=== PATIENT | male | born 1955 | race Caucasian/White ===

== ENCOUNTER 2018-01-26 11:21 | Inpatient (IN) | payer OTHER ==
[2018-01-26] MEDS ORDERED: Prochlorperazine TAB* 10 MG PO PRN (12:39)
[2018-01-26] MEDS ORDERED: LORazepam INJ* 2 MG/ML 1 ML VIAL IV PUSH PRN (12:41)
[2018-01-26] MEDS: NS 0.9% 1000 ML* 1,000 ML IV SCH ×2 (12:56→22:00)
[2018-01-26] MEDS: Scopolamine 1.5 mg* PATCH TRANSDERM SCH (13:45)
[2018-01-26] MEDS: Enoxaparin(*) 40 MG/0.4 ML SYR SUBCUT SCH (13:46)
[2018-01-26] MEDS: methylPREDNISolone SOD 40 MG* 1 ML VIAL IV SCH (13:47)
[2018-01-26] MEDS ORDERED: Iohexol 300* (CONTRAST) 10 ML SDV IV ONE ×2 (14:49→18:41)
--- NOTE | 2018-01-26 19:06 | RAD ---
Indication: Colitis. Contrast: Administered 111.1 ml of OMNIPAQUE 300 mg/ml CT of the abdomen and pelvis was performed after IV contrast administration. No oral contrast was administered. Coronal and sagittal reconstructed images were obtained. Lung bases demonstrate no pleural fluid, nodules or masses. Heart is of normal size without evidence of pericardial effusion. Liver is normal in size. No focal lesions or intrahepatic ductal dilatation is noted. Gallbladder demonstrates no calcified gallstones. No pericholecystic fluid or wall thickening is noted. Pancreas demonstrates no mass or pancreatic duct dilatation. The spleen is normal in size. No adrenal lesions are noted. The kidneys demonstrate symmetric nephrograms. Low density lesion in the lower pole of the right kidney is noted containing nodular calcification. This is slightly larger than on prior exam currently measures 14 mm. This likely represents a Bosniak 2F lesion and follow-up exam in 6 months is suggested. Alternatively renal mass CT scan protocol could BE performed. Left kidney is unremarkable. No retroperitoneal lymphadenopathy is noted. Small bowel demonstrates mild to moderate dilatation is nonspecific pattern. Mesenteric lymph nodes are noted. Focal wall thickening is noted in the right mid abdomen and reference image [id number] just to the right of midline adjacent to the superior mesenteric vein. This may be causing a partial small bowel obstruction. The appendix is otherwise unremarkable and normal in caliber. No focal wall thickening of the colon is noted. Small mesenteric lymph nodes are noted. Right-sided inguinal hernia containing fat is noted. IMPRESSION: 14 mm low density lesion in the lower pole of the right kidney with coarse calcification. Follow-up exam in 6 months is suggested. There appears to be some tethering of the small intestine with a kink within the bowel activity #4201 5 for which a small bowel lesion is not excluded. Fluid is noted in the colon without mucosal thickening. Lesion in the right kidney with chunky calcification likely represents a Bosniak 2F lesion. Follow-up exam in 6 months is suggested. Alternatively renal mass protocol CT scan could BE performed.
[2018-01-26] MEDS: OLANzapine TAB* 10 MG PO SCH (22:00)
[2018-01-27] MEDS: NS 0.9% 1000 ML* 1,000 ML IV SCH ×3 (06:09→22:32)
[2018-01-27 06:11] LABS: ABS Basophils 0 10^3/ul (0-0.2); ABS Eosinophils 0 10^3/ul (0-0.6); ABS Monocytes 0.8 10^3/ul (0-0.8); ABS Neutrophils 8.8 10^3/ul (1.5-7.7); ABS Nucleated RBC 0 10^3/ul; Eosinophil % 0.1 % (0-6); Hematocrit 38 % (42-52); Hemoglobin 12.8 g/dl (14.0-18.0); Lymphocyte % 17.4 % (25-47); Mean Corpuscular HGB Conc 34 g/dl (31-36); Mean Corpuscular Hemoglobin 32 pg (27-31); Mean Corpuscular Volume 96 fL (80-94); Mean Platelet Volume 7.2 um3 (7.4-10.4); Nucleated Red Blood Cells % 0; Platelet Count 282 10^3/ul (150-450); Red Cell Distribution Width 13 % (10.5-15); White Blood Count 11.6 10^3/ul (3.5-10.8)
[2018-01-27 06:26] LABS: EGFR Non-African American 106.5 (>60)
[2018-01-27] MEDS: methylPREDNISolone SOD 40 MG* 1 ML VIAL IV SCH (07:56)
[2018-01-27] MEDS: Enoxaparin(*) 40 MG/0.4 ML SYR SUBCUT SCH (14:07)
[2018-01-27] MEDS: OLANzapine TAB* 10 MG PO SCH (22:32)
[2018-01-28] MEDS: NS 0.9% 1000 ML* 1,000 ML IV SCH ×3 (06:48→22:48)
[2018-01-28 06:57] LABS: ABS Basophils 0 10^3/ul (0-0.2); ABS Eosinophils 0 10^3/ul (0-0.6); ABS Lymphocytes 2.2 10^3/ul (1.0-4.8); ABS Monocytes 1.1 10^3/ul (0-0.8); ABS Neutrophils 11.4 10^3/ul (1.5-7.7); ABS Nucleated RBC 0 10^3/ul; Eosinophil % 0.1 % (0-6); Hematocrit 40 % (42-52); Hemoglobin 13.4 g/dl (14.0-18.0); Mean Corpuscular HGB Conc 34 g/dl (31-36); Mean Corpuscular Hemoglobin 33 pg (27-31); Mean Corpuscular Volume 96 fL (80-94); Nucleated Red Blood Cells % 0; Platelet Count 265 10^3/ul (150-450); Red Blood Count 4.11 10^6/ul (4.0-5.4); Red Cell Distribution Width 13 % (10.5-15); White Blood Count 14.7 10^3/ul (3.5-10.8)
[2018-01-28 07:13] LABS: EGFR Non-African American 86.1 (>60)
[2018-01-28] MEDS: methylPREDNISolone SOD 40 MG* 1 ML VIAL IV SCH (09:27)
[2018-01-28] MEDS: Ondansetron INJ* 2 MG/ML VIAL IV PRN (10:04)
--- NOTE | 2018-01-28 12:22 | PN ---
Progress Note - Progress Note Date of Service: 01/28/18 SOAP: Subjective: [Binu reports that he was feeling better yesterday afternoon and ate a large volume for lunch and dinner. He did not have any immediate nausea or vomiting, but developed abdominal cramping and diarrhea overnight. He feels better again this am. He has an appetite again this am as well. No fevers. No hematachezia.] Objective: [ Enoxaparin Sodium (Lovenox(*)) 40 mg SUBCUT Q24H [facility] Last Admin: 01/27/18 14:07 Dose: 40 mg Sodium Chloride (Ns 0.9% 1000 Ml*) 1,000 mls @ 125 mls/hr IV PER RATE [facility] Last Admin: 01/28/18 06:48 Dose: 125 mls/hr Lorazepam (Ativan Inj*) 1 mg IV PUSH Q4H PRN PRN Reason: nausea Methylprednisolone Sodium Succinate (Solu-Medrol 40 Mg) 80 mg IV DAILY [facility] Last Admin: 01/28/18 09:27 Dose: 80 mg Olanzapine (Zyprexa Tab*) 10 mg PO BEDTIME [facility] Last Admin: 01/27/18 22:32 Dose: 10 mg Ondansetron HCl (Zofran Inj*) 4 mg IV Q4H PRN PRN Reason: NAUSEA/VOMITING Last Admin: 01/28/18 10:04 Dose: 4 mg Pharmacy Profile Note (Scopolamine Patch Remove*) 1 note PATCH OFF Q72H [facility] Prochlorperazine (Compazine Tab*) 10 mg PO Q6HR PRN PRN Reason: NAUSEA Scopolamine (Transderm-Scop 1.5 Mg Patch*) 1 patch TRANSDERM Q72H [facility] Last Admin: 01/26/18 13:45 Dose: 1 patch Laboratory Results - last 24 hr 01/27/18 01/28/18 01/28/18 17:49 06:41 06:41 WBC 14.7 H RBC 4.11 Hgb 13.4 L Hct 40 L MCV 96 H MCH 33 H MCHC 34 RDW 13 Plt Count 265 MPV 7.0 L Neut % (Auto) 77.3 Lymph % (Auto) 15.0 L Keith % (Auto) 7.5 H Eos % (Auto) 0.1 Baso % (Auto) 0.1 Absolute Neuts (auto) 11.4 H Absolute Lymphs (auto) 2.2 Absolute Monos (auto) 1.1 H Absolute Eos (auto) 0 Absolute Basos (auto) 0 Absolute Nucleated RBC 0 Nucleated RBC % 0 Sodium 137 L Potassium 3.4 L Chloride 108 Carbon Dioxide 25 Anion Gap 4 BUN 25 H Creatinine 0.89 Est GFR ( Amer) 110.7 Est GFR (Non-Af Amer) 86.1 BUN/Creatinine Ratio 28.1 H Glucose 103 H Calcium 7.1 L Magnesium 2.0 Amylase 34 Lipase 41 Vital Signs: Temp Pulse Resp BP Pulse Ox 97.8 F 55 18 111/61 95 01/28/18 11:36 01/28/18 11:36 01/28/18 11:36 01/28/18 11:36 01/28/18 11:36 Exam: Gen: 62 yo male who appears mildly ill, but in NAD HEENT: MMM CV: RRR Resp: lungs CTA Abd: soft, diffusely but mildly TTP, BS present Ext: No edema Skin: No rash] Assessment: [62 yo male with malignant melanoma currently treated with immunotherapy who failed outpatient management of immune mediated colitis.] Plan: [1. Colitis - improved symptoms yesterday, worse overnight after advancing his diet last night - suspect that his worsening symptoms last night were due to advancing his diet too quickly - cont IV steroids - return diet to clear liquids and advance slowly - consider Remicaid if symptoms do not improve 2. Malignant melanoma] - holding therapy
[2018-01-28] MEDS: Enoxaparin(*) 40 MG/0.4 ML SYR SUBCUT SCH (13:37)
[2018-01-28] MEDS ORDERED: Loperamide CAP* 2 MG PO ONE (21:00)
[2018-01-28] MEDS: OLANzapine TAB* 10 MG PO SCH (22:46)
[2018-01-29 06:26] LABS: ABS Basophils 0 10^3/ul (0-0.2); ABS Eosinophils 0 10^3/ul (0-0.6); ABS Lymphocytes 2.4 10^3/ul (1.0-4.8); ABS Monocytes 1.1 10^3/ul (0-0.8); ABS Neutrophils 10.7 10^3/ul (1.5-7.7); ABS Nucleated RBC 0 10^3/ul; Eosinophil % 0.2 % (0-6); Hematocrit 39 % (42-52); Hemoglobin 12.9 g/dl (14.0-18.0); Lymphocyte % 17.1 % (25-47); Mean Corpuscular HGB Conc 33 g/dl (31-36); Mean Corpuscular Hemoglobin 32 pg (27-31); Mean Corpuscular Volume 96 fL (80-94); Mean Platelet Volume 6.9 um3 (7.4-10.4); Nucleated Red Blood Cells % 0; Platelet Count 235 10^3/ul (150-450); Red Blood Count 4.07 10^6/ul (4.0-5.4); Red Cell Distribution Width 14 % (10.5-15); White Blood Count 14.3 10^3/ul (3.5-10.8)
[2018-01-29] MEDS: NS 0.9% 1000 ML* 1,000 ML IV SCH (07:22)
[2018-01-29] MEDS: methylPREDNISolone SOD 40 MG* 1 ML VIAL IV SCH (09:24)
[2018-01-29] MEDS: Ondansetron INJ* 2 MG/ML VIAL IV PRN (09:30)
[2018-01-29] MEDS ORDERED: Scopolamine PATCH Remove* 1 NOTE MISC PATCH OFF SCH (13:00)
[2018-01-29] MEDS: Scopolamine 1.5 mg* PATCH TRANSDERM SCH (13:35)
[2018-01-29] MEDS: Enoxaparin(*) 40 MG/0.4 ML SYR SUBCUT SCH (13:36)
--- NOTE | 2018-01-29 16:07 | DS ---
CC: Janet Moore NP; Dr. Bates* DISCHARGE SUMMARY: DATE OF ADMISSION: 01/26/18 DATE OF DISCHARGE: 01/29/18 PRIMARY ONCOLOGIST: Dr. Ian Bates. ATTENDING PHYSICIAN: Dr. Bragg* (dictated by FRANCISCO Hong). PRIMARY CARE PROVIDER: Janet Moore NP DISCHARGING PROVIDER: FRANCISCO Hong PRIMARY DISCHARGE DIAGNOSES: 1. 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 2. Metastatic melanoma. DISCHARGE MEDICATIONS: 1. Aspirin 81 mg p.o. daily. 2. Vitamin D 600 units p.o. daily. 3. Doxazosin 1 mg p.o. at bedtime. 4. Finasteride 5 mg p.o. daily. 5. Multivitamin 1 tablet p.o. daily. 6. Prednisone 100 mg p.o. daily for the next 7 days, then to start tapering per Dr. Bates's instructions at the time of followup. 7. Compazine 10 mg p.o. q.6 hours as needed for nausea and vomiting. 8. Scopolamine patch, 1 patch applied transdermally every 72 hours. 9. Viagra 50 mg p.o. daily as needed. 10. Simvastatin 20 mg p.o. daily. Medication changes: 1. Prednisone as described above. 2. Compazine. 3. Scopolamine. HOSPITAL IMAGING: CT abdomen and pelvis with IV contrast only shows potentially some tethering of the small intestine with a kink within the small bowel, but no evidence of small bowel obstruction. There was fluid noted within the colon but without mucosal thickening. HOSPITAL COURSE: This is a 62-year-old gentleman with metastatic melanoma, currently being treated by Dr. Bates with ipilimumab and nivolumab. The patient tolerated his first 2 cycles very well without any significant side effects, but following his third cycle of treatment he developed abdominal pain, nausea, vomiting, and diarrhea. CT scan was suggestive of colitis and the patient was started on oral prednisone. Despite initiating prednisone, he continued to be severely nauseated and with multiple episodes of vomiting. His abdominal pain did improve somewhat. The patient was seen on 2 occasions in the medical oncology clinic and received IV steroids and hydration, but unfortunately his symptoms were not improving and he was subsequently hospitalized for IV interventions. The patient was started on IV Solu-Medrol and IV fluids with IV antiemetics. He initially improved quite quickly and his appetite returned and unfortunately , he advanced his diet too quickly and he redeveloped abdominal cramping and diarrhea. His diet was taken back to clear liquids and advanced more slowly, which he tolerated well. The patient remained afebrile throughout his hospitalization. His nausea was well managed. He had very little diarrhea the 24 hours prior to discharge without abdominal pain but still felt somewhat bloated. DISPOSITION AND FOLLOWUP PLAN: The patient is being discharged to home. He will be discharged on prednisone 100 mg p.o. daily, which he is instructed to continue that dose for the next 6 days, at which point, he will follow up with Dr. Bates on 02/03/18. If he is doing well at that time, he can initiate a taper at 10 to 20 mg per week. His treatment will be on hold at this time until colitis symptoms resolve. FRANCISCO HONG [id number]/[facility] #: [id number] [facility]
[2018-01-29 17:47] VITALS: BP 118/65
== END 2018-01-29 16:30 | disposition home or self-care (01) | DRG 249 ==
LOC: SSU 12:28 → OBSVTOIN 01-28 11:34
PROVIDERS: ADMIT Internal Medicine Hematology & Oncology; ATTEND Internal Medicine Hematology & Oncology
DX: K52.89 Other specified noninfective gastroenteritis and colitis (principal); C77.3 Secondary and unspecified malignant neoplasm of axilla and upper limb lymph nodes; C43.62 Malignant melanoma of left upper limb, including shoulder; E78.5 Hyperlipidemia, unspecified; M47.817 Spondylosis without myelopathy or radiculopathy, lumbosacral region; T50.Z15A Adverse effect of immunoglobulin, initial encounter; Y92.9 Unspecified place or not applicable; Z88.1 Allergy status to other antibiotic agents; Z91.012 Allergy to eggs; Z85.46 Personal history of malignant neoplasm of prostate; Z90.79 Acquired absence of other genital organ(s); Z80.42 Family history of malignant neoplasm of prostate; Z80.7 Family history of other malignant neoplasms of lymphoid, hematopoietic and related tissues; Z79.82 Long term (current) use of aspirin
CPT/HCPCS: 36415; 74177; 80048; 80053; 82150; 83690; 83735; 85025; 99220; 99233; 99239; A9270-GY; G0378; J1642; J1650; J2405; J2920; Q0164; Q9967

== ENCOUNTER 2018-02-03 14:26 | Observation (INO) | payer OTHER ==
[2018-02-03] MEDS ORDERED: Prochlorperazine TAB* 10 MG PO PRN (15:06)
[2018-02-03] MEDS ORDERED: Magnesium Sulfate IV* 3 GM in NS 0.9% 100 ML* 100 ML IVPB ONE (15:45)
[2018-02-03] MEDS ORDERED: Temazepam CAP* 15 MG PO PRN (15:47)
[2018-02-03] MEDS ORDERED: oxyCODONE TAB* 5 MG TAB PO PRN (15:47)
[2018-02-03] MEDS ORDERED: Pantoprazole IV* 40 MG IV SCH (16:00)
[2018-02-03] MEDS ORDERED: Scopolamine 1.5 mg* PATCH TRANSDERM SCH (16:00)
[2018-02-03] MEDS: NS 0.9% w/ 40 Meq KCL 1000 ML* 1,000 ML IV SCH (19:39)
--- NOTE | 2018-02-03 20:13 | CONS ---
GASTROENTEROLOGY CONSULT: DATE: 02/03/18 REFERRING PHYSICIAN: Ian Bates MD. REASON FOR CONSULTATION: Nausea and vomiting. 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 After non-response to Keytruda, he was switched to a combination of ipilimumab and nivolumab. A few days after his third dose on 01/13/18, he began experiencing nausea and vomiting. He secondarily mentioned diarrhea. He may see some blood in the stool periodically. He says nausea occurs predictably every morning for about 3 hours. He relates it to taking 100 mg of prednisone and his other meds. He has been on low-fiber diet. His stools have been variable, sometimes very soft or diarrhea, but the other times just soft form. He has no past history of acid peptic or dyspeptic problems. He states his stomach is "cast iron." He has not been through any upper GI workups. He does have a history of rectal bleeding, which has been attributed to hemorrhoids when he has had 3 prior colonoscopies at age 48 and 2 others. He is now on a 10 -year plan. PAST MEDICAL HISTORY: 1. Obesity. 2. Left inguinal herniorrhaphy. 3. BPH. 4. Hypercholesterolemia. 5. Metastatic melanoma - it was in the webspace between his 4th and 5th web fingers, then on the 5th finger, and then in lymph nodes. No internal organ involvement has been demonstrated he says. SOCIAL HISTORY: He is from [place], moving here 17 years ago. He is . He retired last year. REVIEW OF SYSTEMS: No history of syncope, palpitations, MT, valvular disease, congestive failure, TB, hemoptysis, renal stones, colon polyps, etc. PHYSICAL EXAM: He is a moderately overweight red-haired man, in no overt distress. HEENT exam is unremarkable. He is anicteric. He has no adenopathy. There are no bruits. His lungs are clear and heart sounds are regular. The abdomen is obese, but soft and nontender. There is no organomegaly. Extremities unremarkable apart from an obvious melanoma deposit on the left hand. Rectal deferred. IMPRESSION AND PLAN: This 62-year-old man has been experiencing nausea and vomiting for about 3 weeks. It seemed linked to his secondary regimen for melanoma, which includes nivolumab and ipilimumab. Frequent GI side effects are known from these with colitis most common. Possibility of other underlying pathology is considered and as his colon referable symptoms are mild he will undergo upper endoscopy. [id number]/[facility] #: [id number] [facility]
[2018-02-03] MEDS ORDERED: Doxazosin TAB* 2 MG PO SCH (21:00)
[2018-02-03] MEDS: Heparin VIAL(*) 5000 UNITS/ML VIAL (FIVE THOUSAND) SUBCUT SCH (21:20)
[2018-02-04] MEDS: NS 0.9% w/ 40 Meq KCL 1000 ML* 1,000 ML IV SCH ×2 (01:37→10:06)
[2018-02-04] MEDS: Heparin VIAL(*) 5000 UNITS/ML VIAL (FIVE THOUSAND) SUBCUT SCH ×2 (05:32→16:37)
[2018-02-04 06:14] LABS: EGFR Non-African American 138.3 (>60)
[2018-02-04] MEDS ORDERED: Midazolam* 1 MG/ML 10 ML VIAL (10 MG) ONE (07:45)
[2018-02-04] MEDS ORDERED: fentaNYL* 50 MCG/ML 2 ML VIAL (100 MCG VIAL) ONE (07:45)
[2018-02-04] MEDS ORDERED: predniSONE TAB* 20 MG PO SCH (09:00)
[2018-02-04] MEDS ORDERED: Atorvastatin* 10 MG TAB PO SCH (09:00)
[2018-02-04] MEDS ORDERED: Finasteride TAB* 5 MG PO SCH (09:00)
[2018-02-04 09:03] VITALS: BP 106/61
--- NOTE | 2018-02-04 11:13 | DS ---
- Discharge Summary Admission Date: OBV 02/03/18 Discharge Date: 02/04/18 Discharge Diagnosis: 1. Gastritis: no evidence for ulceration on EGD 2. Hypokalemia: resolved 3. Melanoma: therapy on hold d/t steroids, f/u later this week Discharge Medications: Medication Instructions Recorded Confirmed Type Cholecalciferol TAB* [Vitamin D 600 unit PO DAILY 01/26/18 02/03/18 History TAB*] Doxazosin TAB* [Cardura TAB*] 1 mg PO BEDTIME 01/26/18 02/03/18 History Finasteride TAB* [Proscar TAB*] 5 mg PO DAILY 01/26/18 02/03/18 History Multivitamins/Minerals TAB* 1 tab PO DAILY 01/26/18 02/03/18 History [Theragran/minerals TAB*] Sildenafil (NF) [Viagra (NF)] 50 mg PO DAILY PRN 01/26/18 02/03/18 History Simvastatin 20 mg PO DAILY 01/26/18 02/03/18 History Prochlorperazine TAB* [Compazine 10 mg PO Q6HR PRN #40 tab 01/29/18 02/03/18 Rx Tab*] Scopolamine 1.5 mg* PATCH* 1 patch TRANSDERM Q72H #10 patch 01/29/18 02/03/18 Rx [Transderm-Scop 1.5 mg Patch*] Pantoprazole TAB (NF) [Protonix 40 mg PO DAILY #30 tab 02/04/18 Rx TAB (NF)] predniSONE TAB* [Deltasone TAB*] 60 mg PO DAILY tab 02/04/18 Rx Hospital Course: Please see admission note for full H&P, however briefly Mr. Nicole is well known to our service d/t his unfortunate diagnosis of metastatic melanoma. He was most recently treated with combination immunotherapy and subsequently developed a colitis requiring oral steroids. Since starting the steroids he has developed recurrent uncontrolled nausea on exam with concern for ulceration or other underlying pathology. He was admitted for observation in order to accomodate an urgent EGD with biopsy. This was performed this AM without obvious complications. The full procedure report is not currently available, however verbal report per nursing did not show evidence for diffuse ulcerations or obvious metastatic disease. Biopsies were obtained. Mr. Nicole has recovered post procedure and feels reasonably well. He is very agreeable to discharge home with cont.'d PO management and will f/u with Dr. Bates as an outpatient on Tuesday 02/06 with repeat labs to evaluate potassium level (resolved with IV replacement and d/t nausea will hold off on PO replacement for next 2 days). Plan of care was reviewed at length and all questions answered. >40 min spent with >50% face to face counseling
--- NOTE | 2018-02-27 03:31 | PRO ---
DATE: 02/04/18 - ROOM #443 REFERRING PHYSICIAN: Ian Bates * PROCEDURE: Upper gastrointestinal endoscopy. INDICATION: Nausea and vomiting in a man being treated for metastatic melanoma with Nivolumab and Ipilimumab. He has no longstanding history of acid peptic disease and says he has a on his stomach. He has failed tumor response from Keytruda and his third dose of the current regime was on 01/13/18. Following that he has had nausea and vomiting. The nausea occurred mostly in the morning, lasting 3 hours approximately and he wonders if 100 mg of prednisone is causing it. ENDOSCOPIST: Dr. Hunter. MEDICATIONS: Midazolam 5.5, fentanyl 100. FINDINGS: He is a large-frame, substantially overweight middle-aged man, in no distress. EGD: Larynx - symmetric, limited views. Esophagus - easily entered. Mucosa is normal in upper, mid, and lower esophagus with the EG junction snug at 42 cm. Stomach - generally normal mucosa in the cardia, fundus, body, and antrum. The rugal pattern is normal. There are no erosions except some minimal patchy erythema in the antrum that appears nonspecific. Duodenum - the pylorus is normal. The bulb has small erosions and is granular. The granular change consistent with a chronic inflammatory response. It is much more marked in the second and third portion of the duodenum. Biopsies were taken from distal duodenum and two sites in the stomach. IMPRESSION: 1. Normal esophagus and stomach. 2. Duodenopathy - nonspecific with biopsies pending to rule out Giardia or granulomas Addendum: nonspecific chronic inflammation [id number]/[facility] #: [id number] [facility]
== END 2018-02-04 17:15 | disposition home or self-care (01) ==
LOC: MEDTELE 15:14
PROVIDERS: ADMIT Internal Medicine Hematology & Oncology; ATTEND Internal Medicine Hematology & Oncology
PROC: 0DB98ZX Excision of Duodenum, Via Natural or Artificial Opening Endoscopic, Diagnostic (ICD-10-PCS; principal; 2018-02-04)
PROC: 0DB68ZX Excision of Stomach, Via Natural or Artificial Opening Endoscopic, Diagnostic (ICD-10-PCS; 2018-02-04)
DX: K29.70 Gastritis, unspecified, without bleeding (principal); E87.6 Hypokalemia; C43.9 Malignant melanoma of skin, unspecified; C77.9 Secondary and unspecified malignant neoplasm of lymph node, unspecified; Z79.899 Other long term (current) drug therapy; Z88.1 Allergy status to other antibiotic agents; N40.0 Benign prostatic hyperplasia without lower urinary tract symptoms; E66.9 Obesity, unspecified; E78.00 Pure hypercholesterolemia, unspecified
CPT/HCPCS: 36415; 80053; 82270; 82784; 83516; 83735; 86256; 87077; 88305; 88341; 88342; 96365; 96372; 96375; 99156; 99157; 99217; 99220; A9270-GY; G0378; J1642; J1644; J2250; J3010; J3475; J7512

== ENCOUNTER 2018-02-23 10:08 | Inpatient (IN) | payer OTHER ==
[2018-02-23] MEDS ORDERED: Acetaminophen TAB* 325 MG PO PRN (10:34)
[2018-02-23] MEDS ORDERED: PROCHLORPERAZINE INJ 5 MG/ML 2 ML VIAL IV PRN (10:39)
[2018-02-23] MEDS ORDERED: Ondansetron ODT TAB* 4 MG SL PRN (10:39)
[2018-02-23] MEDS ORDERED: Morphine INJ* 10 MG/ML 1 ML CARPUJECT IV PRN (10:40)
[2018-02-23] MEDS ORDERED: Scopolamine 1.5 mg* PATCH TRANSDERM SCH (11:00)
[2018-02-23] MEDS ORDERED: inFLIXimab-DYYB (Inflectra) 100 MG/10 ML VIAL IVPB ONE (12:00)
[2018-02-23] MEDS ORDERED: NS 0.9% IVPB ONE (14:00)
[2018-02-23] MEDS ORDERED: INFLIXIMAB DYYB IVPB ONE (14:00)
[2018-02-23] MEDS: Enoxaparin(*) 40 MG/0.4 ML SYR SUBCUT SCH (14:44)
[2018-02-23] MEDS ORDERED: Iohexol 300* (CONTRAST) 10 ML SDV IV ONE (16:56)
[2018-02-23] MEDS ORDERED: Doxazosin TAB* 2 MG PO SCH (21:00)
[2018-02-23] MEDS: NS 0.9% 1000 ML* 1,000 ML IV SCH (21:15)
--- NOTE | 2018-02-23 21:30 | RAD ---
INDICATION: History of metastatic melanoma. Nausea, vomiting, colitis. COMPARISON: January 19, 2018 CT. July 11, 2017 PET/CT. TECHNIQUE: Multidetector CT images were obtained from the lung apices to the ischial tuberosities with 111 mL Omnipaque 300 IV contrast. No oral contrast administered. Multiplanar reformation. CHEST REPORT: Approximate 6 RIGHT and 6 LEFT subcentimeter pulmonary nodules with assistance representative dominant 0.4 cm nodule at the posterior basal segment of the RIGHT lower lobe reference image 39 and 0.6 cm nodule at the posterior basal segment of the LEFT lower lobe reference image 40 new compared with the January 19, 2018 exam suspicious for metastatic disease given the clinical context. Negative for pleural effusions. LEFT axillary lymphadenopathy with dominant 3.1 x 3.8 cm node increased from 2.6 x 2.8 cm previously. Negative for mediastinal or hilar lymphadenopathy. Negative for cardiomegaly or pericardial effusion. Tip of RIGHT chest port at level of RIGHT atrium. Negative for suspicious thoracic osseous lesions. CHEST IMPRESSION: 1. Multiple new subcentimeter bilateral pulmonary nodules concerning for metastatic disease given the clinical context. 2. Enlargement of LEFT axillary lymphadenopathy. ABDOMEN PELVIS REPORT: Subtle new arterial phase enhancing nodules at the dome of the LEFT hepatic lobe most conspicuous on the chest exam reference images 46-50 with the subsequent portal venous phase series demonstrating small hypodense nodules. Negative for CT abnormality of the gallbladder or pancreas. Multiple hypodense lesions of the spleen measuring up to 1.3 cm larger than seen in the liver new compared with the prior exam. Negative for CT abnormality of the upper GI, small bowel, appendix, colon. Negative for ascites or free air. Fat-containing probable direct RIGHT inguinal hernia without inflammatory change. Normal adrenal glands. Unchanged small cystic lesion with marginal calcification at the anterior midpole of the RIGHT kidney. Symmetric nephrograms and pyelograms. Unremarkable ureters and urinary bladder. Negative for lymphadenopathy. Normal diameter abdominal aorta and iliac arteries. Physiologic distention of the IVC. Multiple small lytic lesions of the lower thoracic and lumbar sacral spine new compared with the January 19, 2018 exam concerning for metastasis. Upper Cutter 1.2 cm maximum dimension lesion at the posterior superior endplate of the L5 vertebral body reference sagittal reformatted image 67. No pathologic fractures evident. ABDOMEN PELVIS IMPRESSION: 1. New hepatic and splenic lesions highly suspicious for metastatic disease. 2. New multiple small lytic lesions at the lower thoracic and lumbar sacral spine highly suspicious for metastatic lesions.
[2018-02-24] MEDS: NS 0.9% 1000 ML* 1,000 ML IV SCH ×2 (05:16→13:30)
[2018-02-24 05:34] LABS: Hematocrit 37 % (42-52); Hemoglobin 12.5 g/dl (14.0-18.0); Mean Corpuscular HGB Conc 34 g/dl (31-36); Mean Corpuscular Hemoglobin 33 pg (27-31); Mean Corpuscular Volume 96 fL (80-94); Mean Platelet Volume 6.8 um3 (7.4-10.4); Platelet Count 145 10^3/ul (150-450); Red Blood Count 3.82 10^6/ul (4.0-5.4); Red Cell Distribution Width 14 % (10.5-15); White Blood Count 8.2 10^3/ul (3.5-10.8)
[2018-02-24 05:50] LABS: EGFR Non-African American 104.8 (>60)
[2018-02-24 06:05] LABS: Monocytes % 5 % (0-7)
[2018-02-24] MEDS ORDERED: Aspirin EC TAB* 81 MG TAB.EC PO SCH (09:00)
[2018-02-24] MEDS: Enoxaparin(*) 40 MG/0.4 ML SYR SUBCUT SCH (13:31)
[2018-02-24 14:23] VITALS: BP 112/58
--- NOTE | 2018-02-25 09:16 | DS ---
CC: Janet Moore NP * DISCHARGE SUMMARY: DATE OF ADMISSION: 02/23/18 DATE OF DISCHARGE: 02/24/18 PRIMARY CARE PROVIDER: Janet Moore NP. PRIMARY ONCOLOGIST AND ATTENDING PHYSICIAN: Dr. Ian Bates.* (DICTATED BY FRANCISCO HONG) DISCHARGING PROVIDER: FRANCISCO Hong. PRIMARY DISCHARGE DIAGNOSES: 1. Immune-mediated duodenitis and colitis with intractable nausea, vomiting, and diarrhea failing oral steroid therapy requiring infliximab. 2. Metastatic melanoma with therapy currently on hold for treatment of his colitis. DISCHARGE MEDICATIONS: 1. Aspirin 81 mg p.o. daily. 2. Vitamin D 600 units p.o. daily. 3. Diclofenac 25 mg p.o. daily. 4. Doxazosin 1 mg p.o. at bedtime. 5. Finasteride 5 mg p.o. daily. 6. Multivitamin one tablet p.o. daily. 7. Compazine 10 mg p.o. q.6 hours as needed for nausea and vomiting. 8. Scopolamine patch 1.5 mg patch applied transdermally every 72 hours as needed for nausea. 9. Viagra 50 mg p.o. daily as needed for erectile dysfunction. 10. Simvastatin 20 mg p.o. daily. HOSPITAL IMAGING: CT chest, abdomen and pelvis shows no acute intra-abdominal pathology, but unfortunately demonstrates significant disease progression. There is multiple new subcentimeter bilateral pulmonary nodules concerning for metastatic disease as well as enlargement of left axillary lymphadenopathy. There is new hepatic and splenic lesions suspicious for metastatic disease and new multiple small lytic lesions at the lower thoracic and lumbar sacral spine suspicious for metastatic lesions. HOSPITAL COURSE: This is a 62-year-old gentleman with metastatic melanoma treated with immunotherapy and after 3 cycles developed severe abdominal pain and diarrhea. He has been treated for colitis and required prior hospitalization for intractable symptoms. He has been on corticosteroids for greater than one month. Patient had been tapering his prednisone, reached the dose of 50 mg daily. Shortly before stepping down, developed some increased nausea, abdominal pain and decreased appetite and after decreasing to 50 mg daily developed severe diarrhea, nausea and vomiting to the point that he was unable to tolerate anything by mouth for approximately 48 hours prior to hospitalization. Evaluation in medical oncology office revealed he was afebrile. Labs demonstrated some mild acute renal insufficiency consistent with hypovolemia and otherwise unremarkable. Due to patient's intractable nausea, vomiting, diarrhea, and inability to tolerate anything orally, he was subsequently admitted to the hospital for symptom management. Patient did fail corticosteroid therapy and thus was administered infliximab at a dose of 5 mg/ kg. Patient reported improvement in symptoms shortly after receiving his dose of infliximab. On the day of discharge, he denied any abdominal pain, nausea, vomiting, or diarrhea. He was able to tolerate a soft diet without symptoms. If patient symptoms recur, can repeat infliximab in 2 weeks. DISPOSITION AND FOLLOWUP PLAN: Patient is being discharged to home. Further corticosteroids have been discontinued. Unfortunately, CT scan shows progression of disease. Patient will follow up with Dr. Bates next week regarding further treatment planning. FRANCISCO HONG [id number]/[facility] #: [id number] [facility]
[2018-02-26] MEDS ORDERED: Scopolamine PATCH Remove* 1 NOTE MISC PATCH OFF SCH (10:59)
== END 2018-02-24 17:00 | disposition home or self-care (01) | DRG 241 ==
LOC: MED 12:55 → OBSVTOIN 12:55
PROVIDERS: ADMIT Internal Medicine Hematology & Oncology; ATTEND Internal Medicine Hematology & Oncology
DX: K29.80 Duodenitis without bleeding (principal); C78.7 Secondary malignant neoplasm of liver and intrahepatic bile duct; C78.02 Secondary malignant neoplasm of left lung; C78.01 Secondary malignant neoplasm of right lung; C79.51 Secondary malignant neoplasm of bone; T50.Z15A Adverse effect of immunoglobulin, initial encounter; Y92.009 Unspecified place in unspecified non-institutional (private) residence as the place of occurrence of the external cause; K52.9 Noninfective gastroenteritis and colitis, unspecified; C43.9 Malignant melanoma of skin, unspecified; E78.5 Hyperlipidemia, unspecified; M47.897 Other spondylosis, lumbosacral region; Z88.1 Allergy status to other antibiotic agents; Z91.012 Allergy to eggs; Z79.82 Long term (current) use of aspirin; Z79.52 Long term (current) use of systemic steroids; Z79.899 Other long term (current) drug therapy; Z85.46 Personal history of malignant neoplasm of prostate; Z80.42 Family history of malignant neoplasm of prostate; Z80.7 Family history of other malignant neoplasms of lymphoid, hematopoietic and related tissues
CPT/HCPCS: 36415; 36591; 71260; 74177; 80053; 83735; 85025; 96361; 96374; 96375; 99213; 99217; 99222; A9270-GY; G0463; J1100; J1642; J1650; J2405; Q5103; Q9967

== ENCOUNTER 2018-08-30 16:47 | Inpatient (IN) | payer BC ==
[2018-08-30] MEDS ORDERED: NS 0.9% 1000 ML* 1,000 ML IV ONE (17:17)
--- NOTE | 2018-08-30 17:29 | ED ---
Complex/Multi-Sys Presentation - HPI Summary HPI Summary: This patient is a 62 year old M brought in by EMS to [facility] accompanied by his with a chief complaint of increasing weakness for the last 10 days. 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 He is currently receiving chemo and radiation. The last radiation treatment was 5 days ago and he has not had chemo for the last two months. The patient rates the pain 4/10 in severity. The patient is not eating appropriately. Today he had a syncopal episode after going from sitting to standing in the shower, his states it lasted about 2 minutes. Patient also c/o SOB, diaphoresis, nausea, ABD pain, and bilateral LE numbness. Patient denies fever, CP, edema, vomiting, and diarrhea. - History Of Current Complaint Chief Complaint: EDGeneral Time Seen by Provider: 08/30/18 16:50 Hx Obtained From: Patient Onset/Duration: Still Present Timing: Constant Severity Currently: Mild Severity Initially: Severe Associated Signs And Symptoms: Positive: Other - SOB, diaphoresis, nausea, ABD pain, and bilateral LE numbness. - Allergies/Home Medications Allergies/Adverse Reactions: Allergies Allergy/AdvReac Type Severity Reaction Status Date / Time Egg Derived Allergy Hives Verified 08/12/18 12:01 erythromycin base AdvReac Dizziness Verified 08/12/18 12:01 Home Medications: Home Medications Dexamethasone TAB* [Decadron TAB*] 8 mg PO BID 08/30/18 [History Confirmed 08/30] Morphine Sulfate [Morphine Sulfate ER] 30 mg PO BID 08/30/18 [History Confirmed 08/30/18] PMH/Surg Hx/FS Hx/Imm Hx Endocrine/Hematology History: Denies: Hx Diabetes - ON MEDICATION DUE TO CHEMO DRUGS Cardiovascular History: Reports: Hx Hypercholesterolemia, Other Cardiovascular Problems/Disorders - hyperlipidemia Denies: Hx Hypertension, Hx Pacemaker/ICD Respiratory History: Reports: Hx Pneumonia, Hx Sleep Apnea - uses CPAP History: Reports: Hx Benign Prostatic Hyperplasia, Other Problems/ Disorders - prostate cancer Denies: Hx Renal Disease Musculoskeletal History: Reports: Hx Orthopedic Injury - carpal tunnel, disk spurs in back, Other Musculoskeletal History - lumbarsacral spondylosis Sensory History: Reports: Hx Contacts or Glasses - bringing in glasses Denies: Hx Hearing Aid Comment Only: Hx Cataracts - pts did bring in some glasses Opthamlomology History: Reports: Hx Contacts or Glasses - bringing in glasses Comment Only: Hx Cataracts - pts did bring in some glasses Psychiatric History: Denies: Hx Panic Disorder - Cancer History Cancer Type, Location and Year: MELANOMA. PROSTATE-IMMINIZATION THERAPY Hx Chemotherapy: No Hx Radiation Therapy: No - Surgical History Surgery Procedure, Year, and Place: Lt HAND- MELANOMA REMOVED. Rt CARPAL TUNNEL. CYST REMOVED FROM COCCYX. HERNIA repair. POWER PORT RIGHT SIDE Hx Anesthesia Reactions: No Infectious Disease History: No Infectious Disease History: Denies: Hx Clostridium Difficile, Hx Hepatitis, Traveled Outside the [place] in Last 30 Days - Family History Known Family History: Positive: Hypertension - Social History Lives: With Family Alcohol Use: Occasionally Substance Use Type: Reports: Marijuana Substance Use Comment - Amount & Last Used: Pt states he vapes marijuana occasionally Smoking Status (MU): Never Smoked Tobacco Review of Systems Positive: Skin Diaphoresis, Other - low PO intake . Negative: Fever Negative: Chest Pain Positive: Shortness Of Breath Positive: Abdominal Pain, Nausea. Negative: Vomiting, Diarrhea Negative: Edema Positive: Weakness, Numbness, Syncope All Other Systems Reviewed And Are Negative: Yes Physical Exam - Summary Physical Exam Summary: Appearance: Ill appearing, no pain distress Skin: large mole on the left chest wall , port in the right chest Head/face: normal Eyes: EOMI, SHAHIDA ENT: dry mucus membranes. Neck: supple, non-tender Respiratory: CTA, breath sounds present Cardiovascular: RRR, pulses symmetrical Abdomen: diffusely TTP Musculoskeletal: normal, strength/ROM intact Neuro: normal, sensory motor intact, A&Ox3 Triage Information Reviewed: Yes Vital Signs On Initial Exam: Initial Vitals Temp Pulse Resp BP Pulse Ox 96.5 F 94 14 112/79 95 08/30/18 16:51 08/30/18 16:51 08/30/18 16:51 08/30/18 16:51 08/30/18 16:51 Vital Signs Reviewed: Yes Diagnostics - Vital Signs Vital Signs Temp Pulse Resp BP Pulse Ox 08/30/18 16:51 96.5 F 94 14 112/79 95 - Laboratory Result Diagrams: 08/30/18 17:32 08/30/18 17:32 Lab Statement: Any lab studies that have been ordered have been reviewed, and results considered in the medical decision making process. - Radiology CXR Radiology Interpretation Completed By: Radiologist Summary of Radiographic Findings: no active cardiopulmonary disease is noted. ED physician has reviewed this radiology report. - CT CT Head CT Interpretation Completed By: Radiologist Summary of CT Findings: There is a 7 mm high density density lesion noted in the left frontal lobe best. seen on axial image 21. Recommend MRI with and without contrast for further. evaluation. ED physician has reviewed this radiology report. CT ABD/Pelvis CT Interpretation Completed By: Radiologist Summary of CT Findings: , 1. Small volume hemoperitoneum possibly due to a ruptured hepatic or splenic. metastasis. 2. Findings of intervally advanced metastatic melanoma. 3. Gastroesophageal reflux without esophagitis. 4. Right inguinal hernia. No strangulation. ED physician has reviewed this radiology report. - EKG 1730 Cardiac Rate: NL EKG Rhythm: Sinus Rhythm - at 94 BPM Summary of EKG Findings: no acute changes Complex Multi-Symp Course/Dx Assessment/Plan: This patient is a 62 year old M brought in by EMS to [facility] accompanied by his with a chief complaint of increasing weakness for the last 10 days. 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 He is currently receiving chemo and radiation. The last radiation treatment was 5 days ago and he has not had chemo for the last two months. The patient rates the pain 4/10 in severity. The patient is not eating appropriately. Today he had a syncopal episode after going from sitting to standing in the shower, his states it lasted about 2 minutes. Patient also c/o SOB, diaphoresis, nausea , ABD pain, and bilateral LE numbness. Patient denies fever, CP, edema, vomiting , and diarrhea. An EKG reveals NSR. CXR reveals, per radiologist, no active cardiopulmonary disease is noted. CT Brain reveals, per radiology, There is a 7 mm high density density lesion noted in the left frontal lobe best. seen on axial image 21. Recommend MRI with and without contrast for further. evaluation. ABD/Pelvis CT reveals, per radiology, 1. Small volume hemoperitoneum possibly due to a ruptured hepatic or splenic. metastasis. 2. Findings of intervally advanced metastatic melanoma. 3. Gastroesophageal reflux without esophagitis. 4. Right inguinal hernia. No strangulation. Bloodwork obtained. Patient was negative for influenza A and B. The patient was given morphine, oxycodone, IV fluids, vancomycin, lactated ringers bag, and decadron. We discussed patient care with Dr. Ann and they recommended admitting the patient and he will see him in the ED. We discussed patient care with Dr. Houston, oncology and they recommended admitting the patient. I discussed the patients case with Dr. Roberson and he has accepted the patient for admission. Patient will be admitted. The patient is agreeable with this plan. - Diagnoses Differential Diagnoses/HQI/PQRI: CVA, Metabolic Abnormality, Sepsis, Urinary Tract Infection, Other - melanoma with mets Provider Diagnoses: Sepsis, Malignant melanoma, metastatic, Dehydration, Hyperglycemia, DKA ( diabetic ketoacidoses), Hemoperitoneum - Physician Notifications Discussed Care Of Patient With: Manuel Ann Time Discussed With Above Provider: 21:07 - Critical Care Time Critical Care Time: 30-74 min - 60 min Discharge - Sign-Out/Discharge Documenting (check all that apply): Patient Departure - admitted - Discharge Plan Condition: Fair Disposition: ADMITTED TO [facility] Referrals: No Primary Care Phys,NOPCP [Primary Care Provider] - - Billing Disposition and Condition Condition: FAIR Disposition: Admitted to [facility] - Attestation Statements Document Initiated by Winstonibjelena: Yes Documenting Scribe: Thai Scott Provider For Whom Scribe is Documenting (Include Credential): Pineda Tejada MD Scribe Attestation: IThai , scribed for Pineda Tejada MD on 08/30/18 at 2137. Scribe Documentation Reviewed: Yes Provider Attestation: The documentation as recorded by the Thai brown accurately reflects the service I personally performed and the decisions made by me, Pineda Tejada MD Consult Consult: 2106 We discussed patient care with Dr. Ann and they recommended admitting the patient and he will see him in the ED. 2115 We discussed patient care with Dr. Houston, oncology and they recommended admitting the patient. 2116 I discussed the patients case with Dr. Roberson and he has accepted the patient for admission.
[2018-08-30 17:45] LABS: Hematocrit 33 % (42-52); Hemoglobin 10.6 g/dl (14.0-18.0); Mean Corpuscular HGB Conc 33 g/dl (31-36); Mean Corpuscular Hemoglobin 31 pg (27-31); Mean Corpuscular Volume 95 fL (80-94); Mean Platelet Volume 7.9 fL (7.4-10.4); Platelet Count 122 10^3/ul (150-450); Red Blood Count 3.43 10^6/ul (4.00-5.40); Red Cell Distribution Width 15 % (10.5-15); White Blood Count 18.6 10^3/ul (3.5-10.8)
[2018-08-30 17:50] LABS: INR 1.33 (0.77-1.02)
[2018-08-30 17:57] LABS: EGFR Non-African American 48.6 (>60)
[2018-08-30] MEDS ORDERED: Lactated Ringers 1000 ml Bag*IV.FLUID IV ONE (18:16)
[2018-08-30] MEDS ORDERED: Piperacillin/Tazobac ADVAN(*) 3.375 GM in NS 0.9% 100 ML* 100 ML IVPB ONE (18:16)
[2018-08-30 18:19] LABS: Monocytes % 9 % (0-7)
[2018-08-30] MEDS ORDERED: oxyCODONE TAB* 5 MG TAB PO ONE (18:40)
[2018-08-30] MEDS ORDERED: Iodixanol* (CONTRAST) 320 MG/ML 100 ML SDV IV ONE (18:46)
[2018-08-30] MEDS ORDERED: Vancomycin(*) 1,250 MG IV x ONCE IVPB ONE ×2 (19:00)
[2018-08-30] MEDS ORDERED: Vancomycin(*) 1,000 MG VIAL IVPB SCH (19:00)
[2018-08-30] MEDS ORDERED: Dexamethasone TAB* 4 MG PO ONE ×2 (20:22→20:32)
[2018-08-30] MEDS ORDERED: Morphine TAB Extended Release (*) 30 MG TAB.ER PO ONE (20:22)
[2018-08-30] MEDS ORDERED: Dexamethasone TAB* 4 MG ONE (20:33)
[2018-08-30] MEDS ORDERED: Insulin REGULAR(*) 1 UNITS UNIT IV PUSH ONE (21:21)
[2018-08-30] MEDS ORDERED: Ondansetron INJ* 2 MG/ML VIAL IV PRN (21:57)
[2018-08-30] MEDS ORDERED: Vancomycin(*) 1,000 MG in NS 0.9% 250 ML* 250 ML IVPB SCH (22:00)
[2018-08-30] MEDS ORDERED: Vancomycin per Pharmacy* NOTE FOLLOW UP SCH (22:00)
[2018-08-30] MEDS ORDERED: Dextrose 50% Syringe 50 ML* 25 GM/50 ML SYRINGE IV PUSH PRN (22:09)
[2018-08-30] MEDS: oxyCODONE TAB* 5 MG TAB PO PRN (23:21)
[2018-08-31 01:11] LABS: Hematocrit 27 % (42-52); Hemoglobin 8.7 g/dl (14.0-18.0)
[2018-08-31] MEDS: NS 0.9% 1000 ML* 1,000 ML IV SCH ×3 (01:33→23:52)
--- NOTE | 2018-08-31 01:40 | HP ---
CC: Dr. Bates; GERTRUDIS Smith * HISTORY AND PHYSICAL: DATE OF ADMISSION: 08/30/18 PRIMARY CARE PROVIDER: BUNNY Smith PRIMARY ONCOLOGIST: Dr. Bates. MY ATTENDING PHYSICIAN WHILE IN THE HOSPITAL: Dr. Roberson * (report dictated by Keven Ellington NP). CHIEF COMPLAINT: 1. Syncope. 2. Lightheadedness. 3. Not feeling well. HISTORY OF PRESENT ILLNESS: Mr. Nicole is a 62-year-old male patient who has a history of melanoma, hyperlipidemia, prostate cancer, and newly diagnosed with diabetes. He is coming into the ED today stating that the last couple of weeks, he has had progressive decline in his appetite. He has been nauseous. He has had intermittent loose stools and diarrhea. Denies any recent antibiotics. He denied having any recent fevers. He did have chills last night. He denied having any cough or any URI symptoms. He states that he has been feeling more bloated and distended and he has just not been having an appetite despite the medications that he is taking. He states that tonight the son noticed that he was sitting in the bed and he fainted. The did note that he was shaking prior to this episode. There were no reports of incontinence and there were no reports of prolonged confusion after this episode , but he fainted in a sitting position. The family was concerned and called 911. The patient does not recall this. He denies any chest pain prior to or after this. No prodrome symptoms were reported. He states he was just feeling lightheaded. He came in to the ED today. He was evaluated. He was noted to have multiple lab abnormalities. In addition to this, also noted to have significant changes on his CT and also concerned for hemoperitoneum. Because of these findings, we were asked to evaluate for admission. PAST MEDICAL HISTORY: Significant for: 1. Melanoma. 2. Hyperlipidemia. 3. Prostate cancer. 4. Diabetes. PAST SURGICAL HISTORY: He has had hernia repair. MEDICATIONS: Home meds include: 1. Dexamethasone 8 mg p.o. b.i.d. 2. Oxycodone 5 mg every 4 hours as needed. 3. Compazine 10 mg every 6 hours as needed. 4. Simvastatin 20 mg p.o. daily. 5. Multivitamin 1 tablet daily. 6. Morphine ER 30 mg p.o. b.i.d. 7. Proscar 5 mg daily. 8. Cardura 1 mg p.o. at bedtime. 9. 1 tablet p.o. daily as needed. 10. Vitamin D 600 units p.o. daily. 11. Aspirin 1 tablet daily. ALLERGIES TO MEDICATIONS: Include ERYTHROMYCIN. FAMILY HISTORY: His mother has a history of dementia. Father had a history of stroke. SOCIAL HISTORY: He does not smoke. He does not drink. Surrogate decision maker is his . REVIEW OF SYSTEMS: There is no documented fever. He does admit to weight loss. He denies having any double vision. No ear discharge. No rhinorrhea. No sore throat. No thyroid enlargement. Denied having any chest pain. There is no orthopnea. There is no nocturnal dyspnea. He denied having any abdominal pain. He denies having any dysuria. There is no frequency. No seizure. There was a question of loss of consciousness. No pruritus and no skin ulcerations. Review of 14 systems completed, all others negative. PHYSICAL EXAMINATION GENERAL: At this time, Mr. Nicole is a 62-year-old male patient. He is sitting in the ED stretcher. He does not appear to be in any acute distress. He appears to be chronically ill appearing. VITAL SIGNS: Blood pressure 157/106, pulse 92, respirations 20, O2 sat 95%, temperature was 96.5. HEENT: Head: Atraumatic and normocephalic. Eyes: EOMs are intact. Sclerae anicteric and not pale. Throat: Oral mucosa appears to be moist. No oropharyngeal erythema. NECK: Supple. LUNGS: Clear to auscultation bilaterally. No wheezes, rales, or rhonchi. HEART: Sounds S1, S2. He had regular rate and rhythm. No murmurs, rubs, or gallops. ABDOMEN: Soft. It was flat. It was nontender. Bowel sounds were present. EXTREMITIES: Pulses were 2+ throughout. He is able to move all 4 extremities with 5/5 strength. NEUROLOGICAL: He is awake. He is alert. He is oriented x3. He has no gross focal deficits. SKIN: Intact. LABORATORY DATA/DIAGNOSTIC STUDIES: His labs today revealed a WBC of 18.6, RBC of 3.43, his hemoglobin was 10.6, hematocrit of 36, platelet count 122,000, bands 16. INR 1.33. PTT of 40.1. Sodium 132, potassium 4.2, chloride 92, bicarb was 22, BUN was 41, creatinine of 1.46 which is up from his baseline, glucose of 414. His lactic was 8. Total bili 0.6, AST 225, ALT 217, alk phos 473. Troponin was 0.03. Albumin 3.2. Serology was negative for flu. He did have multiple imaging in the ED. Multiple imaging here in the ER showed chest x-ray, no elective cardiopulmonary disease is noted. He had an EKG obtained today, which showed a normal sinus rhythm with a rate of 94. There was no ST elevation. He did have some ST depression in leads 1, 2, and V5, V6. There was no previous EKG for comparison. He had a brain CT obtained today. It showed 7 mm high density lesion noted in the left frontal lobe. I recommend MRI with and without further evaluation. Abdominal/pelvis CT was obtained today, which showed a small volume hemoperitoneum, possibly due to ruptured hepatic or splenic metastasis, findings of interval advanced metastatic melanoma, GERD without esophagitis, right inguinal hernia with no strangulation. Old medical records were reviewed. ASSESSMENT AND PLAN: Mr. Nicole is a 62-year-old male patient coming into the ED today, complains of increasing weight loss, decreasing appetite, not feeling well and concern of a syncopal episode today. On evaluation today, it was noted that he appeared to be in septic shock, source unclear. Because of this, we were asked to evaluate for admission. He will be admitted under inpatient status for: 1. Septic shock. Again, he has elevated white count. He has multisystems involved. His LFTs are up. In addition to this, he has got acute acute kidney injury. In addition to this, he has a lactic acid of 8. Blood pressure is stable. He did receive 30 cc/kg bolus. I do not believe he needs to be put on pressors. I have put him on broad-spectrum antibiotics and he has been pancultured. Source is unclear. One of his metastases could be infected and is a possibility. I am waiting on his urine. His chest x-ray was clear. I do not have an obvious source, but I will put him on broad-spectrum antibiotics and will continue to follow him closely. Again, placing him in the ICU. We will repeat his lactic acid. 2. Syncope. Again, I do question if he had a seizure. He does have brain mets. That is not a clearcut picture of seizure as the family does state that he really was not confused afterwards. I do want to monitor with seizure precautions. He is on steroids. I will continue with these. May need to consider antiepileptics if he does seize. We may want to consider because of that brain lesion, MRI with and without contrast. However, his overall prognosis is poor given the extent of the metastasis, though that may be foregone as the patient is interested in pursuing comfort measures in hospice, but because of the syncope I did order an echo. I will get orthostatics and I placed him on telemetry. 3. Melanoma with significant metastatic disease to the spleen, liver, brain and spine. Again, the lesions have increased significantly in the spleen and liver, and there is hemoperitoneum secondary to this possibly. I did have a milagros discussion with the patient. He is at this point interested in pursuing comfort and possibly hospice. He would like to try antibiotics tonight to see how he improves over the next 24 hours and he would like to discuss this tomorrow with his primary oncology team. I am going forward and I could consider further, again MRI and scans depending on the conversation, but at this point we will hold off tonight and Oncology will be evaluating tomorrow. 4. Hyperlipidemia. I have held his statin therapy because of the elevated LFTs. 5. Transaminitis, probably secondary to some shock liver due to possible septic shock or possibly related to those mets. We will trend these and follow. 6. Acute renal failure. There may be a component of acute tubular necrosis and possible dehydration. I am checking UA and a FENa. It does not appear to be obstructed on scan. I will get a bladder scan as well. If he is greater than 400 cc, we will place a Hector. We will continue to follow and hydrate him. 7. New onset diabetes. Again, his sugar here was 414. It could be secondary to the steroids. I will check an A1c. We will place him on lispro sliding scale. 8. EKG changes. Again, I do note the ST depressions. This is probably all demand ischemia. I will cycle the troponins and I will check an echo. He will be placed on telemetry. I will continue to follow. 9. Hemoperitoneum. I will check serial H and H's. He will have 2 peripheral IV's. I will order a type and screen. We will transfuse as needed. Surgery was contacted by the ED and we will continue to monitor. 10. Code status. He wishes to be a DNR. 11. Fluids, electrolytes, and nutrition. I have ordered a clear liquid diet. TIME SPENT: On the admission was 60 minutes, greater than half the time spent face- to-face with the patient obtaining my history and physical; other half time spent going over the plan of care with the patient and implementing plan of care. I did discuss the plan of care with my attending, Dr. Roberson; he is in agreement. KEVEN ELLINGTON NP [id number]/CPS #: [id number] J CARLOS
[2018-08-31] MEDS: Doxazosin TAB* 2 MG PO SCH ×2 (01:51→20:16)
[2018-08-31 02:52] LABS: Urine Appearance Cloudy; Urine Blood 1+ (Negative); Urine Color Yellow; Urine Ketones Trace (Negative); Urine Protein 1+(30 mg/dL) (Negative); Urine Red Blood Cell 2+(6-10/hpf) (Absent); Urine Specific Gravity > 1.060 (1.010-1.030); Urine Urobilinogen Negative (Negative); Urine White Blood Cell Absent (Absent)
[2018-08-31] MEDS: oxyCODONE TAB* 5 MG TAB PO PRN ×2 (04:34→13:29)
[2018-08-31] MEDS ORDERED: Vancomycin(*) 1,250 MG in NS 0.9% 250 ML* 250 ML IVPB SCH (06:30)
[2018-08-31 06:51] LABS: INR 1.33 (0.77-1.02)
[2018-08-31 07:05] LABS: EGFR Non-African American 93.3 (>60)
[2018-08-31 07:12] LABS: Hematocrit 26 % (42-52); Hemoglobin 8.4 g/dl (14.0-18.0); Mean Corpuscular HGB Conc 33 g/dl (31-36); Mean Corpuscular Hemoglobin 31 pg (27-31); Mean Corpuscular Volume 93 fL (80-94); Red Blood Count 2.74 10^6/ul (4.00-5.40); Red Cell Distribution Width 14 % (10.5-15); White Blood Count 14.5 10^3/ul (3.5-10.8)
[2018-08-31 08:37] LABS: Mean Platelet Volume 8.2 fL (7.4-10.4); Platelet Count 82 10^3/ul (150-450)
[2018-08-31 08:42] LABS: ABS Neutrophils 13.6 10^3/ul (1.5-7.7)
[2018-08-31] MEDS: Dexamethasone TAB* 4 MG PO SCH ×2 (08:42→20:17)
[2018-08-31] MEDS: Multivitamins/Minerals TAB PO SCH (08:42)
[2018-08-31] MEDS: Insulin LISPRO* 1 UNITS UNIT SUBCUT SCH ×3 (08:42→18:27)
[2018-08-31] MEDS: Finasteride TAB* 5 MG PO SCH (08:42)
[2018-08-31] MEDS ORDERED: Morphine TAB Extended Release (*) 30 MG TAB.ER PO SCH (09:00)
[2018-08-31] MEDS ORDERED: Atorvastatin* 10 MG TAB PO SCH (09:00)
[2018-08-31] MEDS ORDERED: Cefepime 2 GM in Dextrose(*) 2 GM/50 ML BAG IV SCH (09:00)
--- NOTE | 2018-08-31 09:28 | PN ---
Progress Note - Progress Note Date of Service: 08/31/18 SOAP: Subjective: []Three days pain and not eating, weaker and then passed out. Admission with dehydration, increased lactic acid. CT scan with progressive liver disease. Better after fluids but still not eating. Pain a little better in back after XRT but still sever. Dexamethasone (Decadron Tab*) [address] [facility] Last Admin: 08/31/18 08:42 Dose: 8 mg Dextrose (D50w Syringe 50 Ml*) 12.5 gm IV PUSH .FOR FS < 60 - SS PRN PRN Reason: FS < 60 Doxazosin Mesylate (Cardura Tab*) [address] [facility] Last Admin: 08/31/18 01:51 Dose: Not Given Finasteride (Proscar Tab*) [address] [facility] Last Admin: 08/31/18 08:42 Dose: 5 mg Cefepime HCl (Maxipime 2 Gm In Dextrose Duplex (*)) 2 gm in 50 mls @ 100 mls/ hr IV Q24H [facility] Last Admin: 08/31/18 08:55 Dose: 100 mls/hr Sodium Chloride (Ns 0.9% 1000 Ml*) 1,000 mls @ 125 mls/hr IV PER RATE [facility] Last Admin: 08/31/18 01:33 Dose: 125 mls/hr Vancomycin HCl 1,250 mg/ (Sodium Chloride) 250 mls @ 166.667 mls/hr IVPB Q12H [facility] Last Admin: 08/31/18 06:27 Dose: 166.667 mls/hr Insulin Human Lispro (Humalog*) [address] [facility]; Protocol Last Admin: 08/31/18 08:42 Dose: 2 units Morphine Sulfate (Ms Contin(*)) [address] [facility] Last Admin: 08/31/18 08:42 Dose: 30 mg Multivitamins/Minerals (Theragran/Minerals Tab*) [address] [facility] Last Admin: 08/31/18 08:42 Dose: 1 tab Ondansetron HCl (Zofran Inj*) 4 mg IV Q6H PRN PRN Reason: NAUSEA Oxycodone HCl (Roxycodone Tab*) 5 mg PO Q4HR PRN PRN Reason: PAIN Last Admin: 08/31/18 04:34 Dose: 5 mg Pharmacy Consult (Vancomycin Per Pharmacy*) 1 note FOLLOW UP .VANC PER PHARMACY [facility] Pharmacy Profile Note (Vancomycin Trough Check) 1 note FOLLOW UP .ENTER TIME ONE Stop: 09/01/18 06:01 Objective: [] Vital Signs Temp Pulse Resp BP Pulse Ox 98.3 F 102 26 104/77 92 08/31/18 07:37 08/31/18 09:01 08/31/18 09:01 08/31/18 09:00 08/31/18 09:01 HEENT pale Neuro AAOx3 CTA Tachy, RRR S1S2 Abd distended and tender Assessment: []62 year old metastatic melanoma progressive on targeted and immunotherapy. Now marked progression of hepatic disease during XRT to spine. Cannot continue therapy. Discussed hospice and poor prognosis. He wants to be at home and wants to be comfortable. Plan: []1. To floor today 2. Try to go home tomorrow with hospice. 3. Increase pain medication to Morphine ER 30 TID and Oxycodone 10 mg q 3 prn 4. DNR,DNI 5. Family medical leave for both children Time 40 min with patient and chart
[2018-08-31] MEDS ORDERED: Perflutren Lipid Microsphere* 3 ML VIAL ONE (11:07)
[2018-08-31 13:53] LABS: Hematocrit 24 % (42-52); Hemoglobin 7.7 g/dl (14.0-18.0)
--- NOTE | 2018-08-31 14:28 | ECHO ---
Patient: AURELIO QUEEN [facility] Rec#: [id number] : 1955 Date: 08/31/2018 Age: 62y Height: 175 cm / 68.9 in Weight: 80 kg / 176.3 lbs Sex: M BSA: 1.96 Room#: ICU 1 Admit Date#: 08/30/2018 Type: Inpatient Referring: Keven Ellington NP Reading: Phil Alvarez MD Supervisor [employer]er System: Leanne MontanaRDCS,RDMS Transthoracic Echocardiogram Indication: SYNCOPE BP: 150/97 HR: 108 Rhythm: Tachycardia Findings History: Metastatic melanoma, HLD, HTN Technical Comments: The study quality is fair. Left Ventricle: The left ventricular chamber size is normal. Mild concentric left ventricular hypertrophy is observed. Global left ventricular wall motion and contractility are within normal limits. There is normal left ventricular systolic function. The estimated ejection fraction is 60-65%. There is no consistent Doppler evidence of clinically significant diastolic dysfunction. Left Atrium: The left atrial chamber size is normal. Right Ventricle: The right ventricle wall thickness is mildly increased. The right ventricular cavity size is normal. The right ventricular global systolic function is hyperdynamic. Right Atrium: The right atrium appears normal. Aortic Valve: The aortic valve is trileaflet. The aortic valve leaflets are mildly thickened. Systolic excursion of the aortic valve is normal. There is aortic annular calcification. There is no evidence of aortic regurgitation. There is no evidence of aortic stenosis. Mitral Valve: The mitral valve leaflets are mildly thickened. There is no evidence of mitral regurgitation. There is no evidence of mitral stenosis. Tricuspid Valve: The tricuspid valve leaflets are normal. There is trace tricuspid regurgitation. No pulmonary hypertension is noted. Pulmonic Valve: There is no evidence of pulmonic valve thickening. There is a trace pulmonic regurgitation. Pericardium: There is no significant pericardial effusion. Aorta: The ascending aorta is not well visualized. The aortic arch is not well visualized. The aortic root is normal in size. Pulmonary Artery: The main pulmonary artery appears normal. Venous: The inferior vena cava is not visualized. Contrast: Definity was used to optimize study. A total of 2 ml was used. Summary: There are no significant changes when compared to the previous study done on 03/16/18 Conclusions Mild concentric left ventricular hypertrophy is observed. The estimated ejection fraction is 60-65%. Global left ventricular wall motion and contractility are within normal limits. Systolic excursion of the aortic valve is normal. There is no evidence of aortic stenosis. There is no evidence of mitral regurgitation. There is trace tricuspid regurgitation. There is no significant pericardial effusion. There are no significant changes when compared to the previous study done on 03/16/18 Measurements Name Value Normal Range RVIDd (AP) 2D 2.1 cm (0.9 - 2.6) RVDdMajor (2D) 2.7 cm (2.2 - 4.4) IVSd (2D) 1.1 cm (0.6 - 1) LVPWd (2D) 1.2 cm (0.6 - 1) LVIDd (2D) 4.7 cm (3.6 - 5.4) LVIDs (2D) 3.7 cm - LV FS (2D) 22 % (25 - 45) Aortic Annulus 2 cm (1.4 - 2.6) Ao root diameter (2D) 3.1 cm (2.1 - 3.5) LA dimension (AP) 2D 2.8 cm (2.3 - 3.8) LAd ISD 4CH 5.1 cm (2.9 - 5.3) LA ISD 4CH W 3.3 cm (2.5 - 4.5) Name Value Normal Range LA ESV BP (A/L) index 32 ml/m2 - Name Value Normal Range MV E-wave Vmax 0.5 m/sec - MV deceleration time 58 msec - MV A-wave Vmax 0.7 m/sec - MV E:A ratio 0.7 ratio - LV septal e' Vmax 0.08 m/sec - LV lateral e' Vmax 0.08 m/sec - LV E:e' septal ratio 6 ratio - LV E:e' lateral ratio 6 ratio - Name Value Normal Range AV Vmax 1 m/sec - AV VTI 14 cm - AV peak gradient 4 mmHg - AV mean gradient 2 mmHg - LVOT Vmax 0.9 m/sec - LVOT VTI 14 cm - LVOT peak gradient 3 mmHg - LVOT mean gradient 2 mmHg - Name Value Normal Range TR Vmax 2.6 m/sec - TR peak gradient 26 mmHg - RAP 8 mmHg - RVSP 34 mmHg - Name Value Normal Range PV Vmax 0.7 m/sec - PV peak gradient 2 mmHg -
[2018-08-31] MEDS: Morphine TAB Extended Release (*) 30 MG TAB.ER PO SCH (20:18)
[2018-09-01] MEDS: oxyCODONE TAB* 5 MG TAB PO PRN (02:04)
[2018-09-01] MEDS ORDERED: Vancomycin Trough Check NOTE FOLLOW UP ONE (06:00)
[2018-09-01] MEDS: Insulin LISPRO* 1 UNITS UNIT SUBCUT SCH (09:19)
[2018-09-01] MEDS: Multivitamins/Minerals TAB PO SCH (09:20)
[2018-09-01] MEDS: Dexamethasone TAB* 4 MG PO SCH (09:21)
[2018-09-01] MEDS: Morphine TAB Extended Release (*) 30 MG TAB.ER PO SCH (09:21)
[2018-09-01] MEDS: Finasteride TAB* 5 MG PO SCH (09:21)
[2018-09-01 10:25] VITALS: BP 132/80
--- NOTE | 2018-09-01 11:15 | DS ---
- Discharge Summary Admission date: 08/30/18 Discharge date: 09/01/18 Discharge diagnosis: 1. Metastatic Melanoma: end stage, d/c home with hospice 2. Syncope: combination of dehydration and progressive disease, stable echo 3. ARF: secondary to dehydration/hypovolemia, improved with hydration 4. Transaminitis: secondary to mets, no intervention Discharge Medications: Home Medications Medication Instructions Recorded Confirmed Type Doxazosin TAB* [Cardura TAB*] 1 mg PO BEDTIME 01/26/18 08/30/18 History Finasteride TAB* [Proscar TAB*] 5 mg PO DAILY 01/26/18 08/30/18 History Prochlorperazine TAB* [Compazine 10 mg PO Q6HR PRN #40 tab 01/29/18 08/30/18 Rx Tab*] Dexamethasone TAB* [Decadron TAB*] 8 mg PO BID 08/30/18 08/30/18 History Atropine 1% (ORAL/SL)* 2 drop SL Q2H PRN #1 btl 09/01/18 Rx LORazepam TAB(*) [Ativan 0.5 MG 0.5 mg PO Q4H PRN #18 tab MDD 6 09/01/18 Rx TAB (*)] tabs Morphine CONCENTRATE ORAL SYR* 5 mg PO Q2H #30 oral.syrin MDD 12 09/01/18 Rx doses Morphine TAB Extended Rel(*) [Ms 60 mg PO BID #40 tab.er MDD 4 tabs 09/01/18 Rx Contin(*)] Ondansetron ODT TAB* [Zofran 4 MG 4 mg SL Q6H PRN #20 tab.odt 09/01/18 Rx Odt TAB*] oxyCODONE TAB* [Roxycodone TAB 5 10 mg PO Q4HR PRN #36 tab MDD 12 09/01/18 Rx mg*] tabs Hospital Course: Please see admission note for full H&P, however briefly, Mr. Nicole is well known to our service due to his unfortunate diagnosis of metastatic melanoma. He has unfortunately progressed throughout multiple lines of therapy and recently received palliative RT to the spine. He presented to the ER two days ago with progressive weakness of several days and was admitted with concern for sepsis. Work-up however revealed progressive disease with no growth on cultures. Discussion yesterday with primary oncologist, Dr. Bates, and decision made to stop aggressive therapy and pursue hospice. Mr. Nicole is a DNR and will be transferred home today by ambulance d/t weakness. [facility] his [facility]. Plan of care was discussed at length with the and all questions answered. For now he will continue some of his normal meds, however plan will be comfort focused and depending on his function over the next several days these may be discontinued. His prognosis is likely weeks at most. >40 min spent with >50% face to face counseling.
== END 2018-09-01 12:50 | disposition hospice, home (50) | DRG 381 ==
LOC: ED 16:47 → ICU 21:52 → MED 08-31 12:41
PROVIDERS: ADMIT Nurse Practitioner Family; ATTEND Internal Medicine Hematology & Oncology
DX: C43.9 Malignant melanoma of skin, unspecified (principal); N17.0 Acute kidney failure with tubular necrosis; C78.7 Secondary malignant neoplasm of liver and intrahepatic bile duct; C78.89 Secondary malignant neoplasm of other digestive organs; C79.31 Secondary malignant neoplasm of brain; C79.51 Secondary malignant neoplasm of bone; E78.5 Hyperlipidemia, unspecified; R74.0 Nonspecific elevation of levels of transaminase and lactic acid dehydrogenase [LDH]; Z66 Do not resuscitate; E86.0 Dehydration; E11.9 Type 2 diabetes mellitus without complications; E86.1 Hypovolemia; Z79.82 Long term (current) use of aspirin; Z79.891 Long term (current) use of opiate analgesic; Z79.899 Other long term (current) drug therapy; Z88.1 Allergy status to other antibiotic agents; Z82.3 Family history of stroke; Z84.89 Family history of other specified conditions
CPT/HCPCS: 36415; 70450; 71045; 74177; 80048; 80053; 80076; 80202; 81003; 81015; 82570; 83036; 83605; 83874; 84300; 84484; 85014; 85018; 85025; 85060; 85610; 85730; 86850; 86900; 86901; 87040; 87086; 87641; 93005; 93306; 99233; 99239; 99285; A9270-GY; C8929; J0692; J1642; J2405; J2543; J3370; J8540; Q9967